=== PATIENT | female | born 1960 | race Caucasian/White ===

== ENCOUNTER 2018-06-12 23:42 | Emergency (ER) | payer BC ==
[~2018-06-12] VITALS: Ht 160 cm; Wt 83.9 kg
[~2018-06-12 23:42] MED LIST: NORCO 5-325 TA1 EACH ORAL; PERCOCET 5-3251 EACH ORAL; SILVADENE20 GM TP
[2018-06-12 23:55] VITALS: BP 123/72
--- NOTE | 2018-06-13 00:06 | Emergency Room Report ---
History of Present Illness General Chief Complaint: Upper Extremity Injury Source: Patient Present Illness HPI This is a 57-year-old female who is right-hand dominant. She presents with chief complaint of left wrist pain. She was at a skating constitution party and was skating backward. She tripped and fell onto her left wrist. She has some pain in that area. No loss of consciousness. This occurred about an hour ago. She's been icing it down. Worse with movement. Pain is localized to the left distal radius area. Shooting up her elbow area. No other injury. Pain is 8 out of 10. Worse with movement. Better with rest. Allergies: Coded Allergies: PENICILLINS (Verified Allergy, Unknown, 06/12/18) SHELLFISH DERIVED (Verified Allergy, Unknown, 06/12/18) Patient History Past Medical History: none, see triage record, old chart reviewed Past Surgical History: other Pertinent Family History: none Social History: Denies: smoking Last Menstrual Period: 05/18/2018 Now: No Immunizations: other Reviewed Nursing Documentation: PMH: Agreed; PSxH: Agreed Nursing Documentation-PMH Past Medical History: No History, Except For Review of Systems Eye: Denies: eye pain, blurred vision ENT: Denies: ear pain, nose congestion, throat swelling Respiratory: Denies: cough, shortness of breath Cardiovascular: Denies: chest pain, palpitations Gastrointestinal: Denies: abdominal pain, diarrhea, nausea, vomiting Musculoskeletal: Reports: joint pain; Denies: back pain Skin: Denies: rash Neurological: Denies: headache, numbness Endocrine: Denies: increased thirst, increased urine Hematologic/Lymphatic: Denies: easy bruising All Other Systems: negative except mentioned in HPI Physical Exam Vital Signs Date Time Temp Pulse Resp B/P (MAP) Pulse Ox O2 Delivery O2 Flow Rate FiO2 06/12/18 23:48 98.0 75 16 123/72 96 Room Air 98.1 vitals normal Sp02 EP Interpretation: reviewed, normal General Appearance: well appearing, no apparent distress, alert Head: normocephalic, atraumatic Eyes: bilateral eye PERRL, bilateral eye EOMI ENT: hearing grossly normal, normal pharynx Neck: full range of motion, supple, no meningismus Respiratory: chest non-tender, lungs clear, normal breath sounds Cardiovascular #1: regular rate, rhythm, no murmur Gastrointestinal: normal bowel sounds, non tender, no mass, no organomegaly, no bruit, non-distended Musculoskeletal: back normal, gait/station normal, tender - Over distal left radius. Mild deformity and swelling. Pulses normal. No pain over the elbow. No pain over the fingers. Psychiatric: mood/affect normal Skin: warm/dry Procedures Splinting Splinting : Consent: Verbal Location: Left wrist Hand-Made Type: plaster Splint: sugar-tong Pre-Proc Neuro Vasc Exam: normal Post-Proc Neuro Vasc Exam: normal Patient Tolerated: Well Complications: None Medical Decision Making Diagnostic Impression: Primary Impression: Distal radius fracture, left Qualified Codes: S52.572A - Other intraarticular fracture of lower end of left radius, initial encounter for closed fracture ER Course Patient with a distal radius fracture. Patient splinted and discharged home. No evidence of any dislocation. No evidence of any septic joint. Last Vital Signs Date Time Temp Pulse Resp B/P (MAP) Pulse Ox O2 Delivery O2 Flow Rate FiO2 06/12/18 23:48 98.0 75 16 123/72 96 Room Air 98.1 Status: improved Disposition: HOME, SELF-CARE Condition: Stable Scripts Ibuprofen* (MOTRIN*) 600 Mg Tablet 600 MG ORAL THREE TIMES A DAY, #30 TAB 0 Refills Prov: RAMESH PAGE M.D. 06/13/18 Hydrocodone/Acetaminophen 5-325* (HYDROCODONE/ACETAMINOPHEN 5-325*) 1 Each Tablet 1 TAB ORAL Q6H PRN for For Pain, #20 TAB 0 Refills Prov: RAMESH PAGE M.D. 06/13/18 Additional Instructions: Elevate arm. Ice pack area. Follow-up with orthopedic doctor within a week. Return if symptom worsen. RAMESH PAGE M.D. Jun 13, 2018 00:05
[2018-06-13] MEDS ORDERED: Norco 5mg/325mg tab ORAL ONE (00:15)
[2018-06-13] MEDS ORDERED: IBUPROFEN600 MG ORAL (00:48)
[2018-06-13] MEDS ORDERED: HYDROCODON-ACE1 EA15 ORAL (00:48)
[2018-06-13 01:42] VITALS: BP 130/76
--- NOTE | 2018-06-13 06:02 | Emergency Room Report ---
Physical Exam Vital Signs Date Time Temp Pulse Resp B/P (MAP) Pulse Ox O2 Delivery O2 Flow Rate FiO2 06/12/18 23:48 98.0 75 16 123/72 96 Room Air 98.1 Medical Decision Making Diagnostic Impression: Primary Impression: Distal radius fracture, left Other X-Ray Diagnostic Results Other X-Ray Diagnostic Results : X-Ray ordered: Left wrist x-rays # of Views/Limited Vs Complete: 3 View Indication: Pain EP Interpretation: Yes Interpretation: no dislocation, no soft tissue swelling, other - comminuted distal radius frx Impression: Other - distal radius frx Electronically Signed by: Filipe Delcid MD Last Vital Signs Date Time Temp Pulse Resp B/P (MAP) Pulse Ox O2 Delivery O2 Flow Rate FiO2 06/13/18 01:42 82 18 130/76 98 Room Air 06/13/18 00:28 98.0 Disposition: HOME, SELF-CARE Condition: Stable Scripts Ibuprofen* (MOTRIN*) 600 Mg Tablet 600 MG ORAL THREE TIMES A DAY, #30 TAB 0 Refills Prov: FILIPE DELCID M.D. 06/13/18 Hydrocodone/Acetaminophen 5-325* (HYDROCODONE/ACETAMINOPHEN 5-325*) 1 Each Tablet 1 TAB ORAL Q6H PRN for For Pain, #20 TAB 0 Refills Prov: FILIPE DELCID M.D. 06/13/18 Referrals: Varghese Rubi MD Patient Instructions: Wrist Fracture, [id number] Additional Instructions: Elevate arm. Ice pack area. Follow-up with orthopedic doctor within a week. Return if symptom worsen. FILIPE DELCID M.D. Jun 13, 2018 06:02
--- NOTE | 2018-06-13 09:48 | Diagnostic Imaging Report ---
Clinical Indication:Pain in left wrist after fall while rollerskating Technique: 3 views of the left wrist Comparison: None Findings: There is a comminuted intra-articular fracture of the distal radius. No associated ulnar fracture. No carpal fracture. Joint spaces are preserved Impression: Positive for comminuted distal radial fracture. This agrees with the findings reported by the emergency Department physician in the electronic medical record
== END 2018-06-13 01:44 | disposition home or self-care (01) ==
LOC: EMR 06-13 00:07
DX: S52.572A Other intraarticular fracture of lower end of left radius, initial encounter for closed fracture (principal); W01.0XXA Fall on same level from slipping, tripping and stumbling without subsequent striking against object, initial encounter; Y93.21 Activity, ice skating; Y92.89 Other specified places as the place of occurrence of the external cause; Z88.0 Allergy status to penicillin; Z91.013 Allergy to seafood
CPT/HCPCS: 99283

== ENCOUNTER 2018-06-15 21:19 | Emergency (ER) | payer BC ==
[~2018-06-15] VITALS: Ht 162.6 cm; Wt 83.9 kg
[~2018-06-15 21:19] MED LIST changes: +HYDROCODON-ACE1 EA15 ORAL; +IBUPROFEN600 MG ORAL
[2018-06-15 22:44] VITALS: BP 147/68
--- NOTE | 2018-06-16 00:29 | Emergency Room Report ---
History of Present Illness General Chief Complaint: Upper Extremity Injury Source: Patient Present Illness HPI 57-year-old female presents ED complaining of left wrist pain. States that she was seen here on 06/13 and subsequently treated for distal radius fracture. Placed in a sugar tong splint. Was seen by orthopedics yesterday and placed in a cast. States that she felt pain and swelling since the cast was placed. Pain is throbbing, 9 out of 10, nonradiating. Denies fevers or chills. No other aggravating relieving factors. Denies any other associated symptoms Allergies: Coded Allergies: PENICILLINS (Verified Allergy, Unknown, 06/12/18) SHELLFISH DERIVED (Verified Allergy, Unknown, 06/12/18) Patient History Past Medical History: none Past Surgical History: none Pertinent Family History: none Social History: Denies: smoking, alcohol use, drug use Last Menstrual Period: Now: No : 5 Para: 2 Immunizations: UTD Reviewed Nursing Documentation: PMH: Agreed; PSxH: Agreed Review of Systems All Other Systems: negative except mentioned in HPI Physical Exam Vital Signs Date Time Temp Pulse Resp B/P (MAP) Pulse Ox O2 Delivery O2 Flow Rate FiO2 06/15/18 21:22 97.8 68 16 147/68 98 Room Air 97.9 Sp02 EP Interpretation: reviewed, normal General Appearance: no apparent distress, alert, GCS 15, non-toxic Head: normocephalic Eyes: bilateral eye normal inspection, bilateral eye PERRL ENT: normal ENT inspection Neck: normal inspection Respiratory: normal inspection Cardiovascular #1: normal inspection Gastrointestinal: normal inspection Rectal: deferred Genitourinary: no CVA tenderness Musculoskeletal: normal range of motion - fingers, tender - L wrist Neurologic: alert, oriented x3, responsive, motor strength/tone normal, sensory intact, speech normal Psychiatric: normal inspection Skin: normal color, no rash, warm/dry, well hydrated Lymphatic: normal inspection Procedures Splinting Splinting : Consent: Verbal Hand-Made Type: plaster Splint: sugar-tong Pre-Proc Neuro Vasc Exam: normal Post-Proc Neuro Vasc Exam: normal Patient Tolerated: Well Complications: None Medical Decision Making Diagnostic Impression: Primary Impression: Encounter for cast check Additional Impression: Distal radius fracture, left Qualified Codes: S52.502D - Unspecified fracture of the lower end of left radius, subsequent encounter for closed fracture with routine healing ER Course Hospital Course 57-year-old female presents ED with left wrist pain and swelling. Placed in cast yesterday Differentialcompartment syndrome, tight cast placement, infection Clinical course Patient placed on stretcher. After initial history, physical exam reveals a middle-aged female in no acute distress. There is a cast on the left forearm. Full range of motion in the fingers. Good sensation. Patient is asking for the cast to be removed. We removed the cast using a cast cutter. On exam there is no tension to the skin of the forearm. Warm and dry. Soft. Good pulse. Good sensation and color to the fingers. Some bruising noted around the wrist which is expected from the fracture Reassurance given to the patient. My suspicion for compartment syndrome or other acute process is low. We'll place patient in sugar tong splint per comfort. Patient states she will follow-up with orthopedics tomorrow Patient states she was recommended to have surgery but she would like a second opinion. I gave her referral to orthopedics and hand Diagnosis - encounter for cast check, distal radius fx Stable and discharged to home. Followup with hand/ortho. Return to ED if symptoms recur/worsen Last Vital Signs Date Time Temp Pulse Resp B/P (MAP) Pulse Ox O2 Delivery O2 Flow Rate FiO2 06/15/18 22:44 97.8 16 147/68 98 Room Air 97.9 06/15/18 21:22 68 Status: improved Disposition: HOME, SELF-CARE Condition: Stable Referrals: HOLLY HILL M.D. NON PHYSICIAN (PCP) Alfonso Jacinto MD Patient Instructions: Wrist Fracture, [id number] Dejuan Dennis MD Jun 16, 2018 00:29
== END 2018-06-15 22:46 | disposition home or self-care (01) ==
LOC: EMR 21:55
DX: Z46.89 Encounter for fitting and adjustment of other specified devices (principal); S52.502A Unspecified fracture of the lower end of left radius, initial encounter for closed fracture; X58.XXXA Exposure to other specified factors, initial encounter; Y93.9 Activity, unspecified; Y92.9 Unspecified place or not applicable; Z88.0 Allergy status to penicillin; Z91.013 Allergy to seafood
CPT/HCPCS: 99282